=== PATIENT | male | born 1975 | race Two or more races ===

== ENCOUNTER 2023-06-02 20:46 | Emergency (ER) | payer OTHER ==
[~2023-06-02] VITALS: Ht 167.6 cm; Wt 95.3 kg
[2023-06-02] MEDS ORDERED: CATAFLAN PO (20:57)
[2023-06-02] MEDS ORDERED: KETOROLAC TROMETHAMINE 30 MG VIAL IM STA (22:59)
[2023-06-03] MEDS ORDERED: KETO10TA2 PO (00:39)
== END 2023-06-03 00:52 ==
LOC: ER 20:46
DX: M25.511 Pain in right shoulder (principal); M75.31 Calcific tendinitis of right shoulder